=== PATIENT | male | born 2000 | race Caucasian/White ===

== ENCOUNTER 2023-11-20 17:22 | Emergency (ER) | payer SELFPAY ==
[2023-11-20 17:28] VITALS: BP 123/66; PULSE 86; RESP 18; TEMP 99.4; BMI 24.1
[2023-11-20] MEDS ORDERED: IBUPROFEN 600 MG TABLET (FP) PO ONE (19:11)
[2023-11-20] MEDS: IBUPROFEN 600 MG TABLET (FP) PO ONE (19:21)
== END 2023-11-20 20:34 | disposition home or self-care (01) ==
LOC: JERFT 17:22 → JER 17:22 → JERFT 20:34
DX: R05.9 Cough, unspecified (principal); M54.6 Pain in thoracic spine; R07.2 Precordial pain; Z20.822 Contact with and (suspected) exposure to COVID-19
CPT/HCPCS: 0241U-QW; 71046-TC-FY; 99284-25

== ENCOUNTER 2024-05-21 08:42 | Emergency (ER) | payer SELFPAY ==
[2024-05-21 08:51] VITALS: BP 130/84; PULSE 73; RESP 18; TEMP 98.5; BMI 26.4
[2024-05-21] MEDS ORDERED: ACETAMINOPHEN INJECTION 100 ML ONE (09:16)
[2024-05-21] MEDS: ACETAMINOPHEN 1000 MG/100 ML BAG IVPB ONE ×2 (09:51→09:57)
[2024-05-21] MEDS: ACETAMINOPHEN 500 MG TABLET (FP) PO ONE (09:56)
[2024-05-21 19:59] LABS: HIV INTERPRETATION NEGATIVE (NEGATIVE)
== END 2024-05-21 11:23 | disposition home or self-care (01) ==
LOC: JER 08:42
PROC: 3E033NZ Introduction of Analgesics, Hypnotics, Sedatives into Peripheral Vein, Percutaneous Approach (ICD-10-PCS; principal; 2024-05-21)
DX: S06.0X9A Concussion with loss of consciousness of unspecified duration, initial encounter (principal); R51.9 Headache, unspecified; R11.2 Nausea with vomiting, unspecified; W22.8XXA Striking against or struck by other objects, initial encounter; Y99.0 Civilian activity done for income or pay
CPT/HCPCS: 36415; 70450-TC; 72125-TC; 86803; 87389; 99284-25; J0131

== ENCOUNTER 2025-02-26 16:16 | Emergency (ER) | payer SELFPAY ==
[2025-02-26 16:34] VITALS: BP 130/85; PULSE 84; RESP 20; TEMP 98.1; BMI 26.2
[2025-02-26 18:43] LABS: HCV DIAGNOSTIC IN-HOUSE W/RFLX NON-REACTIVE (NONREACTIVE)
[2025-02-26 18:44] LABS: HIV INTERPRETATION NEGATIVE (NEGATIVE)
== END 2025-02-26 17:39 | disposition home or self-care (01) ==
LOC: JERFT 16:16
DX: A53.9 Syphilis, unspecified (principal)
CPT/HCPCS: 36415; 86593; 86780; 86803; 87389; 87491; 87591; 87661; 99283-25